=== PATIENT | female | born 1980 | race Asian ===

== ENCOUNTER 2018-03-04 21:36 | Emergency (ER) | payer OTHER, BC | END 2018-03-05 02:05 | disposition home or self-care (01) | LOC: FTE 03-05 02:05 | DX: M25.552 Pain in left hip (principal); R51 Headache; M54.5 Low back pain; R10.84 Generalized abdominal pain | CPT/HCPCS: 76705; 99284-25 ==

== ENCOUNTER → 2019-03-29 | Emergency (ER) | payer BC, OTHER | END | disposition home or self-care (01) | LOC: FTE 12:45 | DX: S00.93XA Contusion of unspecified part of head, initial encounter (principal); V49.49XA Driver injured in collision with other motor vehicles in traffic accident, initial encounter | CPT/HCPCS: 99283 ==